=== PATIENT | female | born 1955 | race Caucasian/White ===

== ENCOUNTER 2020-06-20 17:37 | Emergency (ER) | payer SELFPAY ==
[2020-06-20 18:18] VITALS: O2SAT 97
[2020-06-20 18:39] LABS: ANION GAP 10.1 MEQ/L (5-15); BLOOD UREA NITROGEN 21 mg/dL (7-17); CHLORIDE 104 mmol/L (98-107); Calcium 9.6 mg/dL (8.4-10.2); Carbon Dioxide 29 mmol/L (22-30); EST GLOMERULAR FILTRATION RATE > 60.0 ML/MIN; Glucose 113 mg/dL (74-106); Potassium 4.2 mmol/L (3.5-5.1); SODIUM 139 mmol/L (137-145)
[2020-06-20 18:53] VITALS: BP 139/88; PULSE 96
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
== END 2020-06-20 19:33 | disposition home or self-care (01) ==
LOC: ED 17:37
DX: S20.219A Contusion of unspecified front wall of thorax, initial encounter (principal); S80.01XA Contusion of right knee, initial encounter; V43.51XA Car driver injured in collision with sport utility vehicle in traffic accident, initial encounter
CPT/HCPCS: 36415; 80048; 99284

== ENCOUNTER 2021-02-01 21:57 | Observation (INO) | payer SELFPAY ==
[2021-02-01] MEDS ORDERED: DECADRON 10MG INJ. IV ONE (22:18)
[2021-02-01 22:27] LABS: Hematocrit 39.7 % (35-47); Hemoglobin 12.9 gm/dl (12.0-16.0); Mean Cell Volume 87.3 fl (78-100); Mean Corpuscular Hemoglobin 28.4 pg (26-32); Mean Corpuscular Hgb Concent. 32.5 g/dl (32-36); Mean Platelet Volume 8.6 fl (7.5-11.0); Platelet Count 371 K/mm3 (150-450); Red Blood Count 4.55 M/mm3 (4.1-5.4); Red Cell Distribution Width 14.2 % (11.5-14.0)
[2021-02-01] MEDS ORDERED: DECADRON 10MG INJ. ONE (22:30)
[2021-02-01] MEDS ORDERED: Sodium Chloride 0.9% 1000 ML 1,000 ML ONE (22:30)
[2021-02-01] MEDS ORDERED: Sodium Chloride 0.9% 1000 ML 1,000 ML IV SCH (22:30)
[2021-02-01 22:42] LABS: ALBUMIN 4.1 g/dL (3.5-5.0); ALKALINE PHOSPHATASE 80 U/L (38-126); ANION GAP 16.1 MEQ/L (5-15); BLOOD UREA NITROGEN 19 mg/dL (7-17); CHLORIDE 101 mmol/L (98-107); Carbon Dioxide 25 mmol/L (22-30); Creatinine 1 0.72 mg/dL (0.52-1.04); EST GLOMERULAR FILTRATION RATE > 60.0 ML/MIN; Glucose 95 mg/dL (74-106); Potassium 3.9 mmol/L (3.5-5.1); SGOT/AST 40 U/L (14-36); SGPT/ALT 28 U/L (0-35); SODIUM 138 mmol/L (137-145); Total Protein 7.9 g/dL (6.3-8.2)
--- NOTE | 2021-02-01 23:01 | ERPHSYRPT ---
- History of Present Illness Time Seen by Provider: 02/01/21 22:10 Source: patient Physician History: Patient is a 66-year-old female Covid positive diagnosed on January 19, 2021 presents to our ED with progressive shortness of breath over the past 2 days. Patient states she is doing well after her diagnosis however worsened over the past couple days. Patient states she feels somewhat weak. Patient is experiencing shortness of breath. No nausea or vomiting. No diarrhea. No rash. No numbness tingling or weakness. Timing/Duration: day(s) Activities at Onset: none Severity of Dyspnea-Max: moderate Severity of Dyspnea-Current: mild Possible Cause: illness exposure Modifying Factors: Improves With: exertion Associated Symptoms: cough, No chest pain/discomfort, No ankle swelling, No leg swelling, No tightness, No tingling face, No tingling hands Allergies/Adverse Reactions: ibuprofen Allergy (Severe, Verified 02/01/21 22:25) Anaphylactic Reaction Home Medications: No Reportable Medications [No Reported Medications] 02/01/21 [History] Hx Influenza Vaccination/Date Given: No Hx Pneumococcal Vaccination/Date Given: No - Review of Systems Constitutional: No Symptoms, No Fever, No Chills Eyes: No Symptoms Ears, Nose, & Throat: No Symptoms Respiratory: No Symptoms, No Cough, No Dyspnea Cardiac: No Symptoms, No Chest Pain, No Edema, No Syncope Abdominal/Gastrointestinal: No Symptoms, No Abdominal Pain, No Nausea, No Vomiting, No Diarrhea Genitourinary Symptoms: No Symptoms, No Dysuria Musculoskeletal: No Symptoms, No Back Pain, No Neck Pain Skin: No Symptoms, No Rash Neurological: No Symptoms, No Dizziness, No Focal Weakness, No Sensory Changes Psychological: No Symptoms Endocrine: No Symptoms Hematologic/Lymphatic: No Symptoms Immunological/Allergic: No Symptoms All Other Systems: Reviewed and Negative - Past Medical History Pertinent Past Medical History: Yes Neurological History: No Pertinent History ENT History: No Pertinent History Cardiac History: No Pertinent History Respiratory History: No Pertinent History Endocrine Medical History: No Pertinent History Musculoskeletal History: No Pertinent History GI Medical History: No Pertinent History History: No Pertinent History Psycho-Social History: No Pertinent History Female Reproductive Disorders: No Pertinent History Other Medical History: Seasonal allergies - Past Surgical History Past Surgical History: No Neuro Surgical History: No Pertinent History Cardiac: No Pertinent History Respiratory: No Pertinent History Gastrointestinal: No Pertinent History Genitourinary: No Pertinent History Musculoskeletal: No Pertinent History Female Surgical History: No Pertinent History - Social History Smoking Status: Never smoker Exposure to second hand smoke: No Drug Use: none Patient Lives Alone: No Significant Family History: no pertinent family hx - Nursing Vital Signs Nursing Vital Signs: Initial Vital Signs Temperature 98.2 F 02/01/21 21:58 Pulse Rate 86 02/01/21 21:58 Respiratory Rate 24 02/01/21 21:58 Blood Pressure 128/82 02/01/21 21:58 O2 Sat by Pulse Oximetry 84 L 02/01/21 21:58 Pain Scale Pain Intensity 2 - Physical Exam General Appearance: no apparent distress, alert Eye Exam: PERRL/EOMI Ears, Nose, Throat Exam: hearing grossly normal, normal ENT inspection, normal pharynx Neck Exam: normal inspection, non-tender, supple, full range of motion Respiratory Exam: other (Diminished breath sounds at bases. No wheezing. 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 II-XII nml as tested, nml cerebellar function, nml station & gait, sensation nml, No motor deficits, No sensory deficit, No disoriented, No confusion, No uncooperative, No intoxicated appearance, No motor weakness, No facial droop, No slurred speech, No dysarthria, No abnormal gait, No abnormal cerebellar tests Skin Exam: normal color, warm, No dry Lymphatic Exam: No adenopathy SpO2 Interpretation: normal SpO2: 84 O2 Delivery: Room Air - Course Nursing assessment & vital signs reviewed: Yes EKG Interpreted by Me: RATE (86), Sinus Rhythm, NORMAL AXIS, NORMAL INTERVALS - Radiology Exams Chest X-ray Interpretation: Interpreted by me (Bilateral peripheral PACs. Findings consistent with COVID-19 infection. Intact bony thorax. Normal cardiac silhouette.) Ordered Tests: Active Orders 24 hr Category Date Time Status Bedrest with BRP/BSC ROUTINE Activity 02/02/21 02:57 Active Medical Device Engineer ROUTINE Care 02/02/21 02:57 Completed EKG-ER Only STAT Care 02/01/21 22:16 Completed IV Insertion STAT Care 02/01/21 22:16 Completed Isolation, Initiate & Maintain Q12H Care 02/02/21 02:57 Active Neuro Checks Q4H Care 02/02/21 02:[address] in Observation ROUTINE Care 02/02/21 02:57 Active Telemetry q4h Care 02/02/21 02:57 Active Vital Signs Q4H Care 02/02/21 02:57 Active House Regular Diet Diet 02/02/21 Breakfast Active CHEST 1 VIEW (PORTABLE) Routine Exams 02/01/21 23:32 Taken ABG [ARTERIAL BLOOD GASES] Stat Lab 02/02/21 00:24 Completed CBC W DIFF AM.LAB Lab 02/02/21 05:15 Received CBC W DIFF Stat Lab 02/01/21 22:20 Completed CMP AM.LAB Lab 02/02/21 05:15 Received CMP Stat Lab 02/01/21 22:20 Completed D-DIMER QUANTITATIVE Stat Lab 02/01/21 22:20 Completed Manual Differential NC Stat Lab 02/01/21 22:20 Completed TROPONIN Q3H Lab 02/01/21 22:20 Completed TROPONIN Q3H Lab 02/02/21 01:33 Completed TROPONIN Q3H Lab 02/02/21 05:15 Received TROPONIN Q3H Lab 02/02/21 07:30 Ordered TROPONIN Q3H Lab 02/02/21 10:30 Ordered Pulse Oximetry CONTINUOUS RT 02/02/21 02:57 Active Respiratory Therapy Consult ROUTINE RT 02/02/21 02:57 Completed Transfer Order Routine Transfer 02/02/21 Completed Medication Summary Generic Name Dose Route Start Last Admin Trade Name Freq PRN Reason Stop Dose Admin Acetaminophen 650 mg 02/02/21 02:57 Tylenol 325 Mg PO 03/04/21 02:56 Q4H PRN PRN PAIN AND/OR FEVER Albuterol Sulfate 4 puff 02/02/21 02:57 Ventolin Common Canister IH 03/04/21 02:56 Q4H PRN PRN SHORTNESS OF BREATH/WHEEZING Baricitinib 4 mg 02/02/21 10:00 Olumiant PO 03/04/21 09:59 DAILY SAULO Enoxaparin Sodium 40 mg 02/02/21 10:00 Enoxaparin Sodium SQ 03/04/21 09:59 DAILY SAULO Famotidine 20 mg 02/02/21 10:00 Pepcid 20 Mg Vial IV 03/04/21 09:59 Q12HT SAULO Discontinued Medications Generic Name Dose Route Start Last Admin Trade Name Mark PRN Reason Stop Dose Admin Albuterol Sulfate 4 puff 02/02/21 00:22 02/02/21 00:25 Ventolin Common Canister IH 02/02/21 00:23 4 puff ONCE ONE Administration Dexamethasone Sodium Phosphate 8 mg 02/01/21 22:18 02/01/21 22:36 Decadron 10mg Inj. IV 02/01/21 22:19 8 mg STAT ONE Administration Dexamethasone Sodium Phosphate Confirm 02/01/21 22:30 Decadron 10mg Inj. Administered 02/01/21 22:31 Dose 10 mg .ROUTE .STK-MED ONE Enoxaparin Sodium 40 mg 02/01/21 23:53 02/02/21 00:27 Enoxaparin Sodium SQ 02/01/21 23:54 40 mg STAT ONE Administration Enoxaparin Sodium Confirm 02/02/21 00:24 Enoxaparin Sodium Administered 02/02/21 00:25 Dose 80 mg SQ .STK-MED ONE Sodium Chloride 1,000 mls @ 100 mls/hr 02/01/21 22:30 02/01/21 22:36 Sodium Chloride 0.9% 1000 Ml IV 03/03/21 22:29 100 mls/hr .Q10H SAULO Administration Remdesivir 250 mg/ Sodium 250 mls @ 125 mls/hr 02/01/21 23:53 02/02/21 04:30 Chloride IV 02/02/21 01:52 Not Given ONCE ONE Sodium Chloride Confirm 02/02/21 00:19 Sodium Chloride 0.9% 250 Ml Administered 02/02/21 00:20 Dose 250 mls @ ud IV .STK-MED ONE Remdesivir 200 mg/ Sodium 250 mls @ 125 mls/hr 02/02/21 01:02 02/02/21 01:04 Chloride IV 02/02/21 03:01 125 mls/hr ONCE ONE Administration Sodium Chloride Confirm 02/01/21 22:30 Sodium Chloride 0.9% 1000 Ml Administered 02/01/21 22:31 Dose 1,000 mls @ ud .ROUTE .Vendavo ONE Remdesivir Confirm 02/02/21 00:19 Remdesivir Administered 02/02/21 00:20 Dose 200 mg IV .STK-MED ONE Lab/Rad Data: Laboratory Result Diagrams 02/01/21 22:20 02/01/21 22:20 Laboratory Results 02/02/21 02/02/21 02/01/21 Range/Units 01:33 00:24 22:20 WBC (4.0-10.5) K/mm3 RBC (4.1-5.4) M/mm3 Hgb (12.0-16.0) gm/dl Hct (35-47) % MCV (78-100) fl MCH (26-32) pg MCHC (32-36) g/dl RDW (11.5-14.0) % Plt Count (150-450) K/mm3 MPV (7.5-11.0) fl Segmented Neutrophils (36.0-66.0) % Lymphocytes (Manual) (24-44) % Monocytes (Manual) (0.0-12.0) % Eosinophils (Manual) (0.00-3.0) % Atypical Lymphocytes % Platelet Estimate (NORMAL) RBC Morphology D-Dimer 662 H* (215-500) ng/mL Puncture Site LEFT RADIAL pCO2 37 (35-45) mmHg pO2 66 L (75-100) mmHg Base Excess 2.5 H (-2.0-2.0) O2 Saturation 92.8 L (94-100) g/dF ABG pH 7.46 H (7.35-7.45) ABG HCO3 26.3 (22-28) ABG O2 Sat (Measured) 96.0 (95-100) % Jacques Test YES A-a Gradient 144 a/A Ratio 0.31 Hemoglobin 14.6 Carboxyhemoglobin 1.9 (0.0-6.9) % THgb Methemoglobin 1.4 (1.4-1.5) % Temperature 37.0 C POC O2 Flow Rate 36 % Sodium (137-145) mmol/L Potassium 3.9 (3.5-5.1) mmol/L Chloride (98-107) mmol/L Carbon Dioxide (22-30) mmol/L Anion Gap (5-15) MEQ/L BUN (7-17) mg/dL Creatinine (0.52-1.04) mg/dL Estimated GFR ML/MIN Glucose (74-106) mg/dL Calcium (8.4-10.2) mg/dL Total Bilirubin (0.2-1.3) mg/dL AST (14-36) U/L ALT (0-35) U/L Alkaline Phosphatase (38-126) U/L Troponin I < 0.012 (0.000-0.034) ng/mL Serum Total Protein (6.3-8.2) g/dL Albumin (3.5-5.0) g/dL 02/01/21 02/01/21 02/01/21 Range/Units 22:20 22:20 22:20 WBC 6.0 (4.0-10.5) K/mm3 RBC 4.55 (4.1-5.4) M/mm3 Hgb 12.9 (12.0-16.0) gm/dl Hct 39.7 (35-47) % MCV 87.3 (78-100) fl MCH 28.4 (26-32) pg MCHC 32.5 (32-36) g/dl RDW 14.2 H (11.5-14.0) % Plt Count 371 (150-450) K/mm3 MPV 8.6 (7.5-11.0) fl Segmented Neutrophils 72 H (36.0-66.0) % Lymphocytes (Manual) 18 L (24-44) % Monocytes (Manual) 7 (0.0-12.0) % Eosinophils (Manual) 1 (0.00-3.0) % Atypical Lymphocytes 2 % Platelet Estimate NORMAL (NORMAL) RBC Morphology NORMAL D-Dimer (215-500) ng/mL Puncture Site pCO2 (35-45) mmHg pO2 (75-100) mmHg Base Excess (-2.0-2.0) O2 Saturation (94-100) g/dF ABG pH (7.35-7.45) ABG HCO3 (22-28) ABG O2 Sat (Measured) (95-100) % Jacques Test A-a Gradient a/A Ratio Hemoglobin Carboxyhemoglobin (0.0-6.9) % THgb Methemoglobin (1.4-1.5) % Temperature C POC O2 Flow Rate % Sodium 138 (137-145) mmol/L Potassium 3.9 (3.5-5.1) mmol/L Chloride 101 (98-107) mmol/L Carbon Dioxide 25 (22-30) mmol/L Anion Gap 16.1 H (5-15) MEQ/L BUN 19 H (7-17) mg/dL Creatinine 0.72 (0.52-1.04) mg/dL Estimated GFR > 60.0 ML/MIN Glucose 95 (74-106) mg/dL Calcium 9.0 (8.4-10.2) mg/dL Total Bilirubin 1.00 (0.2-1.3) mg/dL AST 40 H (14-36) U/L ALT 28 (0-35) U/L Alkaline Phosphatase 80 (38-126) U/L Troponin I < 0.012 (0.000-0.034) ng/mL Serum Total Protein 7.9 (6.3-8.2) g/dL Albumin 4.1 (3.5-5.0) g/dL - Progress Progress: improved Air Movement: fair Progress Note: Patient reassessed. Patient placed on 4 L nasal cannula. Oxygen 95%. D-dimer positive however age-adjusted D-dimer does not mandate CTA chest. Chest x-ray reveals bilateral pulmonary opacities consistent with COVID-19 pneumonia. Troponin negative x2. Case discussed with Dr. Snider who advised remdesivir and 40 mg Lovenox. Patient received a dose of Decadron. Albuterol inhaler ordered as well. Dr. Barajas excepted admission to observation to our Covid unit. Plan of care discussed with patient. She agrees to admission to [facility] for further evaluation and treatment. 02/02/21 00:23 Blood Culture(s) Obtained: No Antibiotics given: No Discussed with Dr.: Other (Case discussed with Dr. Barajas who accepts admission to observation.) Will see patient in: hospital (observation) Counseled pt/family regarding: lab results, diagnosis, rad results - Departure Departure Disposition: Observation Clinical Impression: COVID-19, Hypoxia, Pneumonia due to COVID-19 virus Condition: Stable Critical Care Time: No
[2021-02-01 23:38] LABS: ATYPICAL LYMPHS 2 %; Eosinophil 1 % (0.00-3.0); Lymphocytes 18 % (24-44); Monocyte 7 % (0.0-12.0); Neutrophils 72 % (36.0-66.0); Platelet Estimate NORMAL (NORMAL); Total Cells Counted 100
[2021-02-01] MEDS ORDERED: ENOXAPARIN SODIUM SQ ONE (23:53)
[2021-02-02] MEDS ORDERED: REMDESIVIR IV ONE (00:19)
[2021-02-02] MEDS ORDERED: Sodium Chloride 0.9% 250 ML 250 ML IV ONE (00:19)
[2021-02-02] MEDS ORDERED: VENTOLIN COMMON CANISTER IH ONE (00:22)
[2021-02-02] MEDS ORDERED: ENOXAPARIN SODIUM SQ ONE (00:24)
[2021-02-02 00:43] LABS: A-aADO2 144; ABG HEMOGLOBIN 14.6; ABG POTASSIUM 3.9 (3.5-5.1); ABG SITE LEFT RADIAL; ALLEN TEST OK? YES; ARTERIAL BLOOD GAS BASE EXCESS 2.5 (-2.0-2.0); ARTERIAL BLOOD GAS FIO2 36 %; ARTERIAL BLOOD GAS PCO2 37 mmHg (35-45); ARTERIAL BLOOD GAS PO2 66 mmHg (75-100); ARTERIAL BLOOD GAS pH 7.46 (7.35-7.45); CARBOXYHEMOGLOBIN 1.9 % THgb (0.0-6.9); HCO3- 26.3 (22-28); HGB O2 SAT 92.8 g/dF (94-100); Methhemoglobin 1.4 % (1.4-1.5)
[2021-02-02] MEDS: REMDESIVIR 250 MG in Sodium Chloride 0.9% 250 ML 250 ML IV ONE ×2 (00:57→04:30)
[2021-02-02] MEDS ORDERED: REMDESIVIR 200 MG in Sodium Chloride 0.9% 250 ML 250 ML IV ONE (01:02)
[2021-02-02] MEDS ORDERED: VENTOLIN COMMON CANISTER IH PRN (02:57)
[2021-02-02] MEDS ORDERED: TYLENOL 325 MG PO PRN (02:57)
[2021-02-02 06:05] LABS: Hematocrit 37.9 % (35-47); Hemoglobin 12.1 gm/dl (12.0-16.0); Mean Cell Volume 87.7 fl (78-100); Mean Corpuscular Hgb Concent. 31.9 g/dl (32-36); Mean Platelet Volume 8.7 fl (7.5-11.0); Platelet Count 368 K/mm3 (150-450); Red Blood Count 4.32 M/mm3 (4.1-5.4); White Blood Count 3.6 K/mm3 (4.0-10.5)
[2021-02-02 06:11] LABS: ALBUMIN 3.6 g/dL (3.5-5.0); ALKALINE PHOSPHATASE 72 U/L (38-126); ANION GAP 16.4 MEQ/L (5-15); BLOOD UREA NITROGEN 17 mg/dL (7-17); CHLORIDE 104 mmol/L (98-107); Calcium 8.5 mg/dL (8.4-10.2); Carbon Dioxide 23 mmol/L (22-30); Creatinine 1 0.68 mg/dL (0.52-1.04); EST GLOMERULAR FILTRATION RATE > 60.0 ML/MIN; Glucose 140 mg/dL (74-106); Potassium 4.2 mmol/L (3.5-5.1); SGOT/AST 35 U/L (14-36); SGPT/ALT 24 U/L (0-35); SODIUM 139 mmol/L (137-145)
[2021-02-02 07:20] LABS: ANISOCYTOSIS 1+; Lymphocytes 16 % (24-44); Neutrophils 84 % (36.0-66.0); Platelet Estimate NORMAL (NORMAL); Total Cells Counted 100
--- NOTE | 2021-02-02 08:46 | XRAY ---
Indication: Short of breath, fever, and cough. Positive Covid 19. Comparison: June 13, 2010. Portable chest demonstrates new diffuse bilateral patchy airspace disease without consolidation/large effusion. Heart not enlarged for AP portable technique. Bony thorax intact.
[2021-02-02] MEDS: ENOXAPARIN SODIUM SQ SCH (10:28)
[2021-02-02] MEDS: Pepcid 20 MG VIAL IV SCH ×2 (10:28→21:29)
[2021-02-02] MEDS: OLUMIANT PO SCH (10:28)
[2021-02-02] MEDS ORDERED: TYLENOL EXTRA STRENGTH 500 MG PO PRN (11:21)
[2021-02-02] MEDS: DECADRON 10MG INJ. IV SCH (14:15)
[2021-02-02] MEDS ORDERED: Robitussin-Dm Syrup PO PRN (17:31)
[2021-02-02] MEDS: REMDESIVIR 100 MG in Sodium Chloride 0.9% 100 ML BAG 100 ML IV SCH (21:29)
[2021-02-02] MEDS: Ativan 1 MG PO PRN (21:29)
[2021-02-03 05:42] LABS: Hematocrit 38.3 % (35-47); Hemoglobin 12.3 gm/dl (12.0-16.0); Mean Cell Volume 87.6 fl (78-100); Mean Corpuscular Hemoglobin 28.1 pg (26-32); Mean Corpuscular Hgb Concent. 32.1 g/dl (32-36); Mean Platelet Volume 8.9 fl (7.5-11.0); Platelet Count 402 K/mm3 (150-450); Red Blood Count 4.37 M/mm3 (4.1-5.4); Red Cell Distribution Width 14.1 % (11.5-14.0); White Blood Count 4.9 K/mm3 (4.0-10.5)
[2021-02-03 05:58] LABS: INR 1.13 (0.8-3.0); PROTIME 13.3 SECONDS (9.4-12.5)
[2021-02-03 06:09] LABS: ALBUMIN 3.4 g/dL (3.5-5.0); ALKALINE PHOSPHATASE 63 U/L (38-126); BLOOD UREA NITROGEN 25 mg/dL (7-17); CHLORIDE 107 mmol/L (98-107); Calcium 8.9 mg/dL (8.4-10.2); Carbon Dioxide 26 mmol/L (22-30); Creatinine 1 0.64 mg/dL (0.52-1.04); EST GLOMERULAR FILTRATION RATE > 60.0 ML/MIN; Glucose 130 mg/dL (74-106); Potassium 4.3 mmol/L (3.5-5.1); SGOT/AST 24 U/L (14-36); SGPT/ALT 19 U/L (0-35); SODIUM 139 mmol/L (137-145); Total Protein 6.7 g/dL (6.3-8.2)
[2021-02-03] MEDS: DECADRON 10MG INJ. IV SCH (09:45)
[2021-02-03] MEDS: OLUMIANT PO SCH (09:46)
[2021-02-03] MEDS: Pepcid 20 MG VIAL IV SCH ×2 (09:46→21:24)
[2021-02-03] MEDS: ENOXAPARIN SODIUM SQ SCH (09:46)
[2021-02-03 09:55] LABS: ANISOCYTOSIS 1+; Lymphocytes 21 % (24-44); Monocyte 5 % (0.0-12.0); Neutrophils 74 % (36.0-66.0); Platelet Estimate NORMAL (NORMAL); Total Cells Counted 100
--- NOTE | 2021-02-03 10:41 | HP ---
HISTORY OF PRESENT ILLNESS: The patient is a 66 year-old white female who after having COVID seven or eight days got very short of breath and came in for evaluation. She did not get the vaccine I do not think but her did. She is a nonsmoker, normally healthy, not obese only 81 kg. She has a little bit of a cough. No chest pain. Feels better on 5 liters right now and O2 saturations up to 95% on that. She was diagnosed on 01/19/2021. No diarrhea. No abdominal pain. No severe chronic illnesses. No flu or pneumonia vaccine. is at home. He does not have it. He had the vaccination. He has multiple health problems. I will talk to him later. MEDICATIONS: She takes no medicines. ALLERGIES: IBUPROFEN (SEVERE ANAPHYLACTIC REACTION). PAST MEDICAL HISTORY: No chronic illnesses again just really negative. PAST SURGICAL HISTORY: She has had no surgeries. REVIEW OF SYSTEMS: CONSTITUTIONAL: Achiness. No fever. Coughing. HEENT: Clear drainage, occasional cough, RESPIRATORY: Chest aches with coughing, short of breath. : No problems. MUSCULOSKELETAL: The patient kind of aches all over. No chronic problems. No broken bones or anything. PHYSICAL EXAMINATION: The patient is alert, orientated, very pleasant, well kept, sitting up with her O2 on 5. Her oxygen is 95%. VITAL SIGNS: Temperature 97F, pulse 90, respirations 20, blood pressure 122/72. Pulse ox on room air was 84 when she came in and it is now 95% on 5 liters. Her pain intensity 2 from aching all over. HEENT: Pupils equal and reactive to light. NECK: Supple without adenopathy. CHEST: Clear. CVS: No murmurs or gallops. ABDOMEN: Soft. No masses or organomegaly. EXTREMITIES: No cyanosis. Moves all. Looks strong although she feels weak. IMPRESSION: The patient has had COVID for about eight days. Chest x-ray showed fine stranding. Her white count was like 5,000, hemoglobin normal. Her blood was normal. D-dimer was mildly elevated. White count 3.6. PLAN: The patient will be treated as we do most COVID patients who are admitted with Remdesivir, Decadron, anticoagulation. Will consider also using one of the new rheumatoid medicines and I think she has been given that. Olumiant. I will advise her and see if he is a candidate for any prophylactic medicine due to his health problems. PROGNOSIS: Good.
[2021-02-03] MEDS: Ativan 1 MG PO PRN ×2 (17:12→21:46)
[2021-02-03] MEDS: REMDESIVIR 100 MG in Sodium Chloride 0.9% 100 ML BAG 100 ML IV SCH (21:24)
[2021-02-04 05:51] LABS: Hematocrit 38.8 % (35-47); Hemoglobin 12.3 gm/dl (12.0-16.0); Mean Cell Volume 88.4 fl (78-100); Mean Corpuscular Hgb Concent. 31.7 g/dl (32-36); Mean Platelet Volume 8.9 fl (7.5-11.0); Platelet Count 492 K/mm3 (150-450); Red Blood Count 4.39 M/mm3 (4.1-5.4); Red Cell Distribution Width 14.1 % (11.5-14.0); White Blood Count 6.9 K/mm3 (4.0-10.5)
[2021-02-04 06:04] LABS: INR 1.15 (0.8-3.0); PROTIME 13.6 SECONDS (9.4-12.5)
[2021-02-04 06:06] LABS: ALBUMIN 3.3 g/dL (3.5-5.0); ALKALINE PHOSPHATASE 60 U/L (38-126); ANION GAP 12.1 MEQ/L (5-15); BLOOD UREA NITROGEN 27 mg/dL (7-17); CHLORIDE 106 mmol/L (98-107); Calcium 8.9 mg/dL (8.4-10.2); Carbon Dioxide 25 mmol/L (22-30); Creatinine 1 0.69 mg/dL (0.52-1.04); EST GLOMERULAR FILTRATION RATE > 60.0 ML/MIN; Glucose 126 mg/dL (74-106); Potassium 4.4 mmol/L (3.5-5.1); SGOT/AST 23 U/L (14-36); SGPT/ALT 17 U/L (0-35); SODIUM 138 mmol/L (137-145); Total Protein 6.6 g/dL (6.3-8.2)
[2021-02-04 07:10] LABS: Absolute Neutrophil Ct (ANC) 5.14 (1.4-6.9); BAND 1 % (0.0-2.0); Lymphocytes 11 % (24-44); Monocyte 14 % (0.0-12.0); Neutrophils 74 % (36.0-66.0); Platelet Estimate INCREASED (NORMAL); Total Cells Counted 100
[2021-02-04] MEDS: ENOXAPARIN SODIUM SQ SCH (09:50)
[2021-02-04] MEDS: OLUMIANT PO SCH (09:50)
[2021-02-04] MEDS: Pepcid 20 MG VIAL IV SCH ×2 (09:50→20:47)
[2021-02-04] MEDS: DECADRON 10MG INJ. IV SCH (09:50)
[2021-02-04] MEDS: Ativan 1 MG PO PRN ×3 (10:45→20:47)
[2021-02-04] MEDS: REMDESIVIR 100 MG in Sodium Chloride 0.9% 100 ML BAG 100 ML IV SCH (21:06)
[2021-02-05] MEDS: Ativan 1 MG PO PRN ×2 (08:41→18:41)
[2021-02-05] MEDS: DECADRON 10MG INJ. IV SCH (10:01)
[2021-02-05] MEDS: ENOXAPARIN SODIUM SQ SCH (10:02)
[2021-02-05] MEDS: OLUMIANT PO SCH (10:02)
[2021-02-05] MEDS: Pepcid 20 MG VIAL IV SCH ×2 (10:03→21:21)
[2021-02-05] MEDS: REMDESIVIR 100 MG in Sodium Chloride 0.9% 100 ML BAG 100 ML IV SCH (22:19)
[2021-02-06] MEDS: Ativan 1 MG PO PRN (08:21)
[2021-02-06] MEDS: OLUMIANT PO SCH (11:49)
[2021-02-06] MEDS: Pepcid 20 MG VIAL IV SCH (11:49)
[2021-02-06] MEDS: ENOXAPARIN SODIUM SQ SCH (11:50)
[2021-02-06] MEDS: DECADRON 10MG INJ. IV SCH (11:50)
[2021-02-06 12:19] VITALS: BP 120/80
[2021-02-06 15:17] VITALS: PULSE 76; O2SAT 94
== END 2021-02-06 14:14 | disposition home or self-care (01) ==
LOC: ED 21:57 → MED SURG 02-02 02:49
PROVIDERS: ADMIT Family Medicine; ATTEND Family Medicine
DX: U07.1 COVID-19 (principal); R06.02 Shortness of breath; R79.1 Abnormal coagulation profile
CPT/HCPCS: 36000; 36415; 36600; 71045; 80053; 82375; 82803; 84484; 85025; 85379; 85610; 93005; 93268; 94762; 96372; 96374; 99285; G0378; J1100; J1650; A9270-GY